=== PATIENT | male | born 1955 | race Caucasian/White ===

== ENCOUNTER → 2024-01-04 | Outpatient (CLI) | payer MEDICARE, OTHER ==
[2024-01-04 18:26] LABS: Basophils # (A) 0.06 X 10*3/uL (0.00-0.10); Basophils % (A) 0.8 %; Eosinophils % (A) 1.3 %; HCT 47.7 % (39.6-50.0); HGB 15.9 g/dL (13.0-17.0); Lymphocytes # (A) 1.67 X 10*3/uL (0.90-5.00); Lymphocytes % (A) 22.3 %; MCH 29.8 pg (27.0-32.0); MCHC 33.3 g/dL (32.0-37.0); MCV 89.5 FL (80.0-97.0); Mean Platelet Volume 10.1 FL (9.5-12.2); Monocytes # (A) 0.71 X 10*3/uL (0.20-1.00); Monocytes % (A) 9.5 %; NRBC Per 100 WBC 0 X 10*3/uL (0.00-0.01); Neutrophils # (A) 4.92 X 10*3/uL (1.80-7.70); Neutrophils % (A) 65.8 %; Platelet Count 231 X 10*3/uL (140-440); RBC 5.33 X 10*6/uL (4.40-5.60); RDW 12.8 % (11.5-14.5); WBC 7.48 X 10*3/uL (4.50-10.00)
== END | disposition home or self-care (01) ==
LOC: LABPAT 13:41
PROVIDERS: ATTEND Surgery
DX: Z01.818 Encounter for other preprocedural examination (principal); I45.19 Other right bundle-branch block; K43.2 Incisional hernia without obstruction or gangrene; R94.31 Abnormal electrocardiogram [ECG] [EKG]
CPT/HCPCS: 36415; 85025; 86850; 86900; 86901; 93005

== ENCOUNTER → 2024-01-12 | Day surgery (SDC) | payer MEDICARE, OTHER ==
[~2024-01-12] MED LIST: DEXAMETHASONE SOD PHOSPHATE 4 MG/ML 1 ML VIAL ONE; GLYCOPYRROLATE 0.2 MG/ML 2 ML VIAL ONE; HYDROmorphone 0.5 MG/0.5 ML SYRINGE IVP PRN; KETOROLAC 15 MG/ML 1 ML VIAL ONE; MIDAZOLAM 2 MG/2 ML VIAL ONE; NEOSTIGMINE 1 MG/ML 10 ML VIAL ONE; PROPOFOL 10 MG/ML 20 ML VIAL IV ONE; ROCURONIUM 10 MG/ML (5 ML VIAL) IV ONE; ROPIVACAINE 5 MG/ML 30 ML VIAL ONE; SODIUM CHLORIDE 0.9% (PF) 10 ML VIAL ONE; SUCCINYLCHOLINE CHLORIDE 200 MG/10 ML VIAL IV ONE; fentaNYL (PF) 50 MCG/ML 2 ML AMP ONE
[2024-01-12] MEDS: MIDAZOLAM 2 MG/2 ML VIAL IVP ONE (08:30)
[2024-01-12] MEDS: fentaNYL (PF) 50 MCG/ML 2 ML AMP IVP ONE (08:30)
[2024-01-12] MEDS: IV FLUID CONTINUATION 1,000 ML IV ONE (08:45)
--- NOTE | 2024-01-12 08:51 | P.ANPRN ---
Procedure Note - Anesthesia - Nerve Block Performed Bilateral Erector Spinae Single Time Out Performed: Yes Date of Procedure: 01/12/24 Procedure Start Time: : Procedure Stop Time: :37 Location of Patient: PreOp Indication: Acute Post-Operative Pain, Requested by Surgeon Sedation Type: Sedate with meaningful contact maintained Preparation: Sterile Prep Position: Prone Needle Types: Pajunk Needle Gauge: 21 Ultrasound used to visualize needle placement: Yes Ultrasound used to observe medication spread: Yes Injectate: 0.5% Ropivacaine (see comment for volume) (20 mL +10 mL of normal saline +4 mg dexamethasone per side) Blood Aspirated: No Pain Paresthesia on Injection Noted: No Resistance on Injection: Normal Image Stored and Saved: Yes Events: Uneventful and Well Tolerated
[2024-01-12] MEDS: HEPARIN SODIUM,PORCINE 5,000 UNIT/ML 1 ML VIAL SQ PRN (08:54)
[2024-01-12] MEDS: ONDANSETRON 4 MG/2 ML VIAL IVP ONE (08:54)
[2024-01-12] MEDS: ACETAMINOPHEN TAB 500 MG TAB PO PRN (08:54)
[2024-01-12] MEDS: DEXAMETHASONE SOD PHOSPHATE 4 MG/ML 1 ML VIAL IV ONE (08:54)
[2024-01-12] MEDS: LACTATED RINGERS 1,000 ML IV SCH (08:56)
[2024-01-12] MEDS: LIDOCAINE 1%-EPI 1:100,000 20 ML VIAL SQ ONE ×2 (09:34)
[2024-01-12] MEDS: LACTATED RINGERS 1,000 ML IV ONE ×2 (09:56→12:30)
--- NOTE | 2024-01-12 10:11 | P.OP ---
Date of Procedure: 01/12/24 Preoperative Diagnosis: recurrent incisional hernia Postoperative Diagnosis: recurrent incisional hernia Procedure(s) Performed: laparoscopic robotic Recurrent incisional hernia Transversus abdominis plane block Anesthesia: BRANDIE Surgeon: Jonah Colunga Estimated Blood Loss (ml): 5 Pathology: none sent Condition: stable Disposition: PACU Description of Procedure: The patient was placed on the operating table in the supine position. He received general anesthesia. His abdomen was prepped and draped usual fashion. Using a 5 mm optical trocar under direct visualization the peritoneal cavity was entered in the left upper quadrant. The abdomen was then insufflated. The laparoscope was placed back into the perineal cavity. Next a 8 mm robotic trocar was placed in the left lower quadrant and a 12 mm robotic trocar was placed in the left lateral position. The original 5 mm trocar was exchanged for a 8 mm robotic trocar. The patient's placed in the left side up position. And the patient was docked to the robot. The incisional hernia was visualized. Using hook cautery the peritoneum over the incisional hernia was excised. The fascial opening was repaired using 0V LOC suture. Next a piece of 11 cm round ventral light ST mesh was placed into the. Cavity and secured with 2 OV lock suture. The patient was undocked the robot. The needles were retrieved. A four-quadrant transverse abdominal block was performed 1% local Xylocaine. The fascia of the 12 mm trocar site was closed with 0 Ethibond suture. Skin was closed interrupted 3-0 Monocryl suture. Dermabond dressings was applied. Patient tolerated procedure well and was sent to recovery room stable condition.
[2024-01-12 10:24] VITALS: TEMP 98.6
[2024-01-12 10:38] VITALS: RESP 16
[2024-01-12] MEDS: HYDROcodone/APAP 7.5-325MG 1 EACH TAB PO ONE (11:24)
[2024-01-12 14:13] VITALS: BP 124/76; PULSE 85
== END ==
LOC: OR 07:24
PROVIDERS: ATTEND Surgery
DX: K43.2 Incisional hernia without obstruction or gangrene (principal); G89.18 Other acute postprocedural pain; I10 Essential (primary) hypertension; E78.5 Hyperlipidemia, unspecified; I25.10 Atherosclerotic heart disease of native coronary artery without angina pectoris; Z86.718 Personal history of other venous thrombosis and embolism; K21.9 Gastro-esophageal reflux disease without esophagitis; Z85.46 Personal history of malignant neoplasm of prostate; Z90.79 Acquired absence of other genital organ(s); Z87.891 Personal history of nicotine dependence; Z79.82 Long term (current) use of aspirin; Z79.899 Other long term (current) drug therapy
CPT/HCPCS: 49613; S2900; 64999